=== PATIENT | male | born 1965 | race American Indian/Alaskan Native ===

== ENCOUNTER 2019-03-11 06:11 | Day surgery (SDC) | payer OTHER ==
[~2019-03-11 06:11] MED LIST: CELECOXIB 200 MG CAP PO NR; GABAPENTIN 300 MG CAP PO NR; LACTATED RINGERS 1,000 ML IV SCH; MIDAZOLAM 2 MG/2 ML INJ IV NR; fentaNYL 100 MCG/2 ML INJ IV PRN
[2019-03-11] MEDS ORDERED: BACTERIOSTATIC SODIUM CHLORIDE 0.9% 30 ML VIAL INFILTRATI ONE (06:24)
[2019-03-11] MEDS ORDERED: ceFAZolin/Water 2 GM/20 ML 2 GM/20 ML SYRINGE IV ONE (07:26)
[2019-03-11] MEDS ORDERED: BUPIVACAINE/PF (0.5%) 5 MG/1 ML 30 ML VIAL INFILTRATI ONE ×2 (07:30→08:48)
[2019-03-11] MEDS ORDERED: HYDROmorphone 1 MG/1 ML INJ IV PRN (07:30)
[2019-03-11] MEDS ORDERED: LIDOCAINE (1%) 10 MG/1 ML VIAL 20 ML MDV ONE (07:30)
--- NOTE | 2019-03-11 07:30 | Anesthesia Consultation ---
Anesthesia Consult and Med Hx Date of service: 03/11/19 - Airway Anesthetic Teeth Evaluation: Good ROM Head & Neck: Adequate Mental/Hyoid Distance: Adequate Mallampati Class: Class III Intubation Access Assessment: Possibly Difficult - Pulmonary Exam CTA: Yes - Cardiac Exam Cardiac Exam: RRR - Pre-Operative Health Status ASA Pre-Surgery Classification: ASA2 Proposed Anesthetic Plan: General - Pulmonary Hx Smoking: Yes (quit 1 month ago) Hx Respiratory Symptoms: No - Cardiovascular System Hx Hypertension: Yes (took antihypertensive yesterday evening) - Central Nervous System CVA: No - Gastrointestinal Hx Gastroesophageal Reflux Disease: Yes (asymptomatic today) - Endocrine Hx Renal Disease: No Hx Liver Disease: No Hx Insulin Dependent Diabetes: No Hx Non-Insulin Dependent Diabetes: No (reports "pre-DM" but currently diet controlled) Hx Thyroid Disease: No - Other Systems Hx Alcohol Use: No Hx Substance Use: Yes (occasional THC use) Hx Obesity: Yes (BMI 34) - Additional Comments Anesthesia Medical History Comments: No hx anesthetic complications.
--- NOTE | 2019-03-11 07:30 | Anesthesia Day of Surgery ---
Anesthesia Day of Surgery - Day of Surgery Patient Examined: Yes Patient H&P Reviewed: Yes Patient is NPO: Yes
[2019-03-11] MEDS ORDERED: HYDROmorphone 1 MG/1 ML INJ ONE (07:32)
[2019-03-11] MEDS ORDERED: PROPOFOL 200 MG/20 ML VIAL IV ONE (07:33)
[2019-03-11] MEDS ORDERED: ROCURONIUM 50 MG/5 ML INJ IV ONE (07:41)
[2019-03-11] MEDS ORDERED: LIDOCAINE MPF (2%) 20 MG/1 ML VIAL 5 ML ONE (07:41)
[2019-03-11] MEDS ORDERED: PHENYLEPHRINE/NS 1,000 MCG/10 ML SYRINGE (OR USE) IV ONE (08:19)
[2019-03-11] MEDS ORDERED: NEOMY 3.5 MG/BACIT 400 UNITS/POLY B 5000 UNITS/GM OINT PACKET TP ONE ×2 (08:28→09:10)
[2019-03-11] MEDS ORDERED: dexAMETHasone 20 MG/5 ML VIAL ONE (08:30)
[2019-03-11] MEDS ORDERED: ONDANSETRON 4 MG/2 ML INJ ONE (08:30)
[2019-03-11] MEDS ORDERED: LIDOCAINE (1%) 10 MG/1 ML VIAL 20 ML MDV INFILTRATI ONE (08:48)
[2019-03-11] MEDS ORDERED: SODIUM CHLORIDE 0.9% IRR 1,500 ML BOTTLE IR ONE (08:49)
[2019-03-11] MEDS ORDERED: GLYCOPYRROLATE 0.4 MG/2 ML INJ ONE (09:06)
[2019-03-11] MEDS ORDERED: NEOSTIGMINE 10MG/10 ML INJ MDV ONE (09:06)
[2019-03-11] MEDS ORDERED: LACTATED RINGERS 1,000 ML ONE (09:28)
--- NOTE | 2019-03-11 09:39 | Short Stay Summary ---
Short Stay Documentation Date of service: 03/11/19 - History Principal diagnosis: umbilical hernia, incarcerated H&P: obtained from office - Allergies and Medications Current Medications: Allergies No Known Allergies Allergy (Verified 03/09/19 12:10) Home Medications Medication Instructions Recorded Confirmed Last Taken Type Loratadine 10 mg PO DAILY 03/09/19 03/11/19 03/10/19 History Omeprazole Magnesium [PriLOSEC Otc] 20 mg PO QDAY 03/09/19 03/11/19 03/11/19 04:30 History amLODIPine 5 mg PO DAILY 03/09/19 03/11/19 03/10/19 History oxyCODONE /ACETAMINOPHEN [Percocet 1 tab PO Q6H PRN #20 tab 03/11/19 Unknown Rx 5/325] Active Medications Celecoxib (Celebrex) 200 mg PO PREOP NR Stop: 03/11/19 18:00 Last Admin: 03/11/19 07:01 Dose: 200 mg Documented by: Fentanyl (Sublimaze) 100 mcg IV ONCE PRN PRN Reason: sedation for nerve block Stop: 03/11/19 16:00 Gabapentin (Gabapentin) 300 mg PO PREOP NR Stop: 03/11/19 16:00 Last Admin: 03/11/19 07:01 Dose: 300 mg Documented by: Hydromorphone HCl (Dilaudid) 0.5 mg IV Q10MIN PRN PRN Reason: Pain , Severe (7-10) Stop: 03/12/19 07:29 Lactated Ringer's (Lactated Ringers) 1,000 mls @ 100 mls/hr IV DIRECT JAIME Last Admin: 03/11/19 06:40 Dose: 100 mls/hr Documented by: Midazolam HCl (Versed) 2 mg IV PREOP NR Stop: 03/11/19 18:00 Last Admin: 03/11/19 07:32 Dose: 2 mg Documented by: - Brief post op/procedure progress note Date of procedure: 03/11/19 Pre-op diagnosis: incarcerated umbilical hernia Post-op diagnosis: same Procedure: Robotic assisted umbilical hernia repair with mesh Anesthesia: GETA, local Findings: 1cm hernia containing a moderate amount of incarcerated preperitoneal fat Surgeon: JAVIER WHEELER Curtain Cleaner: MARI KO Estimated blood loss: minimal Pathology: none Condition: stable - Hospital course Hospital course: Pt observed in PACU and discharged to home in stable condition - Disposition Condition at discharge: Good Disposition: DC-01 TO HOME OR SELFCARE Short Stay Discharge Plan Activity: other (No heavy lifting greater than 15 lbs for the next 2 weeks. No [address] if taking prescription pain medications) Diet: regular Wound: open to air, other (may shower tomorrow, pat incisions dry, do not scrub or submerge incisions in bath/hottubs/pools) Additional Instructions: Call surgeon's office if you have fever >100.4, pain not controlled with prescription pain medications, vomiting Follow up with: [facility] [Primary Care Provider] - 7 Days JAVIER WHEELER DO [Staff Physician] - 14 Days Prescriptions: oxyCODONE /ACETAMINOPHEN [Percocet 5/325] 1 tab PO Q6H PRN #20 tab PRN Reason: Pain , Severe (7-10)
[2019-03-11 10:42] VITALS: BP 158/75
--- NOTE | 2019-03-11 15:56 | Operative Report ---
PREOPERATIVE DIAGNOSIS: Incarcerated umbilical hernia. POSTOPERATIVE DIAGNOSIS: Incarcerated umbilical hernia. PROCEDURE: Robotic-assisted umbilical hernia repair with mesh. ANESTHESIA: General endotracheal anesthesia, local. FINDINGS: 1 cm hernia containing a moderate amount of incarcerated preperitoneal fat. SURGEON: Mayda Carmona D.O. TUB PULLER: Carmen Keen M.D. ESTIMATED BLOOD LOSS: Minimal. PATHOLOGY: None. CONDITION ON DISPOSITION: The patient is stable to PACU. HISTORY OF PRESENT ILLNESS AND INDICATION: The patient is a 53-year-old male, who presented to the office with complaints of an umbilical hernia. He was having discomfort in the area and it was recommended that the hernia be repaired. All risks, benefits, and alternatives of surgery were discussed with the patient and questions answered. Consent was obtained. PROCEDURE IN DETAIL: The patient was identified in the preoperative area, taken back to the operating room and placed on the operating table in supine position. After anesthesia was induced, bilateral arms were tucked and all bony prominences were padded appropriately. Abdomen was prepped and draped in the usual sterile fashion. Timeout was performed. Local anesthetic was infiltrated into all skin incision sites prior to incision. A gerardo incision was made in the left upper quadrant at Cash's point through which a Veress needle was inserted. The Veress needle position was confirmed using saline drop test and the abdomen insufflated to 15 mmHg. A 5 mm right upper quadrant Optiview trocar was then placed under direct visualization and the abdomen inspected. There was no underlying injury to any of the abdominal structures. The Veress needle was visualized and removed. An additional 12 mm right mid lateral abdominal trocar was then placed under direct visualization along with right lower quadrant 8 mm robotic trocar. The 5 mm right upper quadrant trocar was placed with an 8 mm robotic trocar under direct visualization. A Ray-Brendon was placed in the abdomen and the robot docked. A monopolar hook was placed in arm #1 and a fenestrated bipolar in arm #2. There was a visible umbilical hernia. Approximately 4-5 cm lateral to the hernia, preperitoneal dissection was carried out. The peritoneum was scored and the preperitoneal space entered. A preperitoneal pocket was then created using a combination of blunt dissection and electrocautery. Once the hernia was encountered, there did appear to be incarcerated preperitoneal fat. This was carefully reduced and was of moderate quality. Once the hernia was reduced, the dissection was carried out distally in order to accommodate mesh placement. Once the preperitoneal pocket dissection was complete, the hernia defect was measured at 1 cm. An 8 cm round, flat Bard mesh was chosen to repair the defect. This was cut to size by the marketing communications assistant surgeon and placed into the abdomen along with suture material. The defect was closed using running 0 V-Loc suture. The mesh was then placed and centered at the hernia defect. There was adequate coverage circumferentially. The mesh was sutured into place in all 4 quadrants using 2-0 Vicryl interrupted sutures. The pocket was checked for hemostasis, which was carefully ensured. The peritoneum was then reapproximated using a 3-0 V-Loc suture in a running fashion. The entirety of the mesh was covered by peritoneum. There were no holes seen in the peritoneum. The mesh was not in contact with any of the intraabdominal structures. The robot was then undocked and the surgeon scrubbed back in. The Ray-Brendon needles and suture material were removed from the abdomen under direct visualization. Initial sponge, instrument, sharp counts were correct. The 12 mm port was removed and the fascia closed with interrupted 0 Vicryl suture using Gordy-Radha device. The abdomen was slowly desufflated and the mesh was seen to remain flat. The remainder of the ports was removed under direct visualization. The skin incisions once again infiltrated with local anesthetic and skin closed with 4-0 Monocryl subcuticular stitches and skin glue. At the end of the case, all sponge count, instrument, sharp counts were correct x 2. The patient was awoken from anesthesia, extubated, and taken to PACU in stable condition. JOB# [id number] BEATRIZ/SAROJ
--- NOTE | 2019-03-11 17:24 | Post Anesthesia Evaluation ---
- Post Anesthesia Evaluation Patient Participated: Yes Airway Patent: Yes Stable Respiratory Function: Yes Nausea/Vomiting: No Temp > 96.8F: Yes Pain Manageable: Yes Adequeate Hydration: Yes Anesthesia Complications: No Block Receding Appropriately: Not Applicable Patient on Ventilator: No
== END 2019-03-11 11:15 | disposition home or self-care (01) ==
LOC: OR 06:11
PROVIDERS: ATTEND Surgery
DX: K42.0 Umbilical hernia with obstruction, without gangrene (principal); E78.00 Pure hypercholesterolemia, unspecified; I10 Essential (primary) hypertension; K21.9 Gastro-esophageal reflux disease without esophagitis; E66.9 Obesity, unspecified; F17.210 Nicotine dependence, cigarettes, uncomplicated; E11.9 Type 2 diabetes mellitus without complications; Z98.890 Other specified postprocedural states; Z79.899 Other long term (current) drug therapy; Z68.34 Body mass index [BMI] 34.0-34.9, adult; Z80.42 Family history of malignant neoplasm of prostate
CPT/HCPCS: 49653; 82962; C1781; J0690; J1100; J1170; J2250; J2370; J2405; J2704; J2710; J7120; S2900; A6250; J3010